=== PATIENT | male | born 1945 | race Caucasian/White ===

== ENCOUNTER 2016-05-27 20:13 | Observation (INO) | payer MEDICARE, OTHER ==
[~2016-05-27] VITALS: Ht 182.9 cm; Wt 90.0 kg
[2016-05-27] MEDS ORDERED: OMEG1CAP6 PO (21:10)
[2016-05-27] MEDS ORDERED: GEMF600T3 PO (21:10)
[2016-05-27] MEDS ORDERED: WARF10TA6 PO (21:10)
[2016-05-27] MEDS ORDERED: CALCIUM PO (21:10)
[2016-05-27] MEDS ORDERED: CANA1TAB4 PO (21:10)
[2016-05-27] MEDS ORDERED: OLME20TA PO (21:10)
[2016-05-27] MEDS ORDERED: METO25TA4 PO (21:10)
[2016-05-27] MEDS ORDERED: ATOR40TA78 PO (21:10)
[2016-05-27] MEDS ORDERED: CHOL20002 PO (21:15)
[2016-05-27] MEDS ORDERED: BACITRACIN ZINC OINT 500U/GM, 0.9 GM TP PRN (21:15)
[2016-05-27] MEDS ORDERED: ANTI1CAP PO (21:15)
[2016-05-27] MEDS ORDERED: SITA100T PO (21:15)
[2016-05-27] MEDS ORDERED: LIDOCAINE 1%-EPI 1:100K, 30ML ONE (21:19)
[2016-05-27] MEDS ORDERED: BACITRACIN ZINC OINT 500U/GM, 0.9 GM ONE (21:24)
[2016-05-27] MEDS ORDERED: LIDOCAINE 1%-EPI 1:100K, 20ML INFIL ONE (22:00)
[2016-05-27] MEDS ORDERED: SODIUM CHLORIDE FLUSH 10ML SYR IVF ONE (23:00)
[2016-05-27 23:08] LABS: HEMOGLOBIN 19.5 g/dL (13.7-18.0)
[2016-05-27 23:19] LABS: ASPARTATE AMINO TRANSFERASE 18 U/L (15-37); BLOOD UREA NITROGEN 23 mg/dL (7-18)
[2016-05-27 23:45] VITALS: BP 146/89
[2016-05-28] MEDS ORDERED: PLEASE ENTER ALLERGIES MC SCH ×2 (00:30)
[2016-05-28] MEDS ORDERED: DIAZEPAM 5 MG TABLET PO PRN (01:00)
[2016-05-28 03:30] VITALS: BP 156/86
[2016-05-28] MEDS ORDERED: METOPROLOL TARTRATE 25 MG TABLET PO SCH (06:00)
[2016-05-28 06:01] LABS: HEMOGLOBIN 18.3 g/dL (13.7-18.0)
[2016-05-28 06:05] LABS: ASPARTATE AMINO TRANSFERASE 15 U/L (15-37); BLOOD UREA NITROGEN 23 mg/dL (7-18)
[2016-05-28 08:01] VITALS: BP 133/81
[2016-05-28] MEDS ORDERED: SITAGLIPTIN 100MG TABLET PO SCH (09:00)
[2016-05-28] MEDS ORDERED: ATORVASTATIN 80 MG TABLET PO SCH (09:00)
[2016-05-28] MEDS ORDERED: INVOKAMET HOMEMEDPO SCH (09:00)
[2016-05-28] MEDS ORDERED: LOSARTAN 50MG TABLET PO SCH (09:00)
[2016-05-28] MEDS ORDERED: CHOLECALCIFEROL 1,000 UNIT TABLET PO SCH (09:00)
[2016-05-28] MEDS ORDERED: GEMFIBROZIL 600 MG TABLET PO SCH (09:00)
[2016-05-28] MEDS ORDERED: CALCIUM CARBONATE 500 MG TABLET PO SCH (09:00)
[2016-05-28] MEDS ORDERED: SODIUM CHLORIDE FLUSH 3ML SYRINGE IVF SCH (09:00)
[2016-05-28] MEDS ORDERED: CEPHALEXIN 500 MG CAPSULE PO SCH (09:00)
== END 2016-05-28 10:27 | disposition home or self-care (01) ==
LOC: ED 22:32 → 4NOR 22:33 → ED 22:49
PROVIDERS: ADMIT Otolaryngology; ATTEND Otolaryngology
DX: R04.0 Epistaxis (principal); E78.5 Hyperlipidemia, unspecified; E11.9 Type 2 diabetes mellitus without complications; I10 Essential (primary) hypertension; J34.2 Deviated nasal septum; Z95.2 Presence of prosthetic heart valve; Z79.01 Long term (current) use of anticoagulants
CPT/HCPCS: 36415; 80053; 85025; 85610; 85730; G0378; J3490

== ENCOUNTER → 2016-08-17 | Outpatient (CLI) | payer MEDICARE, OTHER ==
[~2016-08-17] MED LIST: ANTI1CAP PO; ATOR40TA78 PO; CALCIUM PO; CANA1TAB4 PO; CHOL20002 PO; GEMF600T3 PO; METO25TA4 PO; OLME20TA PO; OMEG1CAP6 PO; SITA100T PO; WARF10TA6 PO
== END | disposition home or self-care (01) ==
LOC: CFH 15:13
PROVIDERS: ATTEND Internal Medicine Critical Care Medicine
DX: J98.11 Atelectasis (principal); M47.894 Other spondylosis, thoracic region; Z95.2 Presence of prosthetic heart valve
CPT/HCPCS: 71020

== ENCOUNTER 2018-04-11 01:28 | Emergency (ER) | payer MEDICARE, OTHER ==
[~2018-04-11] VITALS: Ht 185.4 cm; Wt 95.0 kg
[~2018-04-11 01:28] MED LIST changes: -CHOL20002 PO; +CHOL200052 PO; -GEMF600T3 PO; +GEMF600T8 PO; -OLME20TA PO; +OLME20TA17 PO; +WARF10TA43 PO; -WARF10TA6 PO
[2018-04-11] MEDS ORDERED: PHENYLEPHRINE NASAL 1%, 15ML SPRAY NAS STA (01:30)
[2018-04-11] MEDS ORDERED: PHENYLEPHRINE NASAL 1%, 15ML SPRAY ONE (01:39)
--- NOTE | 2018-04-11 01:42 | NUR ---
NOSE BLEED SINCE 10 PM GOT WORSE AT MIDNIGHT, ON COUMADIN
[2018-04-11 02:00] LABS: BASOPHILS # (AUTO) 0.03 x10^3/uL (0-0.1); BASOPHILS % (AUTO) 0 % (0-1); EOSINOPHILS # (AUTO) 0.22 x10^3/uL (0-0.4); EOSINOPHILS % (AUTO) 4 % (1-7); LYMPHOCYTES # (AUTO) 1.19 x10^3/uL (1-3.4); LYMPHOCYTES % (AUTO) 21 % (22-44); MD NO; MEAN CORPUSCULAR HEMOGLOBIN 33.4 pg (27.5-34.5); MEAN CORPUSCULAR HGB CONC 33.3 g/dL (33.2-36.2); MEAN CORPUSCULAR VOLUME 100.1 fL (81-97); MEAN PLATELET VOLUME 9.8 fL (7.4-10.4); MONOCYTES # (AUTO) 0.52 x10^3/uL (0.2-0.8); MONOCYTES % (AUTO) 9 % (2-9); NEUTROPHILS # (AUTO) 3.85 x10^3/uL (1.8-6.8); NEUTROPHILS % (AUTO) 66 % (42-75); PLATELET COUNT 196 x10^3/uL (130-400); RED BLOOD COUNT 5.55 x10^6/uL (4.38-5.82); RED CELL DISTRIBUTION WIDTH 15.9 % (9.4-14.8)
[2018-04-11 02:25] LABS: INTERNATIONAL NORMALIZED RATIO 6.42 (0.93-1.1); PROTHROMBIN TIME 63.4 Seconds (9.6-11.5)
[2018-04-11] MEDS ORDERED: PHYTONADIONE 10 MG/ML, 1ML IM ONE (02:30)
[2018-04-11] MEDS ORDERED: PHYTONADIONE 10 MG/ML, 1ML ONE (02:41)
[2018-04-11 02:43] LABS: ALANINE AMINOTRANSFERASE 25 U/L (12-78); ALBUMIN 4.1 g/dL (3.4-5.0); ANION GAP 9 mmol/L (5-15); CALCIUM 9.2 mg/dL (8.5-10.1); CHLORIDE 104 mmol/L (98-107); CREATININE 1.32 mg/dL (0.7-1.3)
[2018-04-11 02:45] LABS: ALKALINE PHOSPHATASE 103 U/L (45-117); BILIRUBIN,TOTAL 0.4 mg/dL (0.2-1.0); TOTAL PROTEIN 7.6 g/dL (6.4-8.2)
--- NOTE | 2018-04-11 02:58 | NUR ---
WALKED PT TO END OF DIAMOND AND BACK, NO NEW BLEEDING
[2018-04-11 04:11] VITALS: BP 134/72
== END 2018-04-11 04:14 | disposition home or self-care (01) ==
LOC: ED 01:55
DX: R04.0 Epistaxis (principal); D68.59 Other primary thrombophilia
CPT/HCPCS: 36415; 80053; 85025; 85610; 85730; 96372; 99283; J3430

== ENCOUNTER → 2019-04-03 | Outpatient (CLI) | payer MEDICARE, OTHER | END | disposition home or self-care (01) | LOC: CFH 12:25 | PROVIDERS: ATTEND Internal Medicine Cardiovascular Disease | DX: I35.9 Nonrheumatic aortic valve disorder, unspecified (principal); I11.9 Hypertensive heart disease without heart failure; E78.5 Hyperlipidemia, unspecified; E11.9 Type 2 diabetes mellitus without complications; Z79.01 Long term (current) use of anticoagulants; Z95.4 Presence of other heart-valve replacement; Z87.891 Personal history of nicotine dependence | CPT/HCPCS: 93306 ==

== ENCOUNTER 2020-02-15 19:18 | Emergency (ER) | payer MEDICARE ==
[~2020-02-15] VITALS: Ht 172.7 cm; Wt 95.0 kg
--- NOTE | 2020-02-15 21:24 | NUR ---
PT AMBULATORY TO ROOM. NADN NASAL CLAMP AND PACKING REMAIN IN PLACE
[2020-02-15] MEDS ORDERED: OXYMETAZOLINE NASAL SPRAY 0.05%,30ML ONE (21:56)
[2020-02-15] MEDS ORDERED: OXYMETAZOLINE NASAL SPRAY 0.05%, 15ML NAS ONE (22:00)
[2020-02-15 22:37] LABS: INTERNATIONAL NORMALIZED RATIO 2.84 (0.93-1.1)
[2020-02-15 22:56] LABS: PROTHROMBIN TIME 29.8 Seconds (9.6-11.5)
--- NOTE | 2020-02-15 23:24 | NUR ---
Patient ambulatory upon discharge from department, returned appropriate information post discharge, medication and follow up teaching.
[2020-02-15 23:25] VITALS: BP 151/83
== END 2020-02-15 23:27 | disposition home or self-care (01) ==
LOC: ED 23:23
DX: R04.0 Epistaxis (principal); F17.210 Nicotine dependence, cigarettes, uncomplicated
CPT/HCPCS: 36415; 85610; 99283; 99406

== ENCOUNTER 2020-02-28 23:28 | Observation (INO) | payer MEDICARE ==
[~2020-02-28] VITALS: Ht 182.9 cm; Wt 92.7 kg
[2020-02-28] MEDS ORDERED: NEOSPORIN OINT. PKT 1 PACKET ONE (23:34)
[2020-02-28] MEDS ORDERED: TRANEXAMIC ACID 100 MG/ML, 10ML ONE (23:39)
[2020-02-29] MEDS ORDERED: TRANEXAMIC ACID 100 MG/ML, 10ML TP ONE
--- NOTE | 2020-02-29 00:07 | NUR ---
LAST INR 2.4
--- NOTE | 2020-02-29 01:14 | NUR ---
PT RESTING AWAITING ADMITT ORDERS NO NEW COMPLAINTS ....
[2020-02-29] MEDS ORDERED: SODIUM CHLORIDE FLUSH 10ML SYR IVF PRN (02:00)
[2020-02-29 02:31] VITALS: BP 161/92
[2020-02-29] MEDS ORDERED: WARF-36 PO (03:10)
[2020-02-29] MEDS ORDERED: EMPA1TAB7 PO (03:12)
[2020-02-29] MEDS: AMOXICILLIN/CLAV 875-125MG TABLET PO SCH ×2 (03:24→15:37)
[2020-02-29] MEDS ORDERED: ONDANSETRON 2MG/ML, 2ML IVPush PRN (03:30)
[2020-02-29] MEDS ORDERED: ENALAPRILAT 1.25 MG/ML, 2ML IVPush PRN (03:30)
[2020-02-29] MEDS ORDERED: LABETALOL 5MG/ML, 20ML IVPush PRN (03:30)
[2020-02-29] MEDS ORDERED: ACETAMINOPHEN 325 MG TABLET PO PRN (03:30)
[2020-02-29] MEDS ORDERED: METOPROLOL TARTRATE 50 MG TAB PO SCH (04:00)
[2020-02-29 05:41] LABS: BASOPHILS % (AUTO) 1 % (0-1); EOSINOPHILS % (AUTO) 2 % (1-7); LYMPHOCYTES % (AUTO) 10 % (22-44); MEAN CORPUSCULAR HEMOGLOBIN 33.6 pg (27.5-34.5); MEAN CORPUSCULAR HGB CONC 33.9 g/dL (33.2-36.2); MEAN PLATELET VOLUME 9.7 fL (7.4-10.4); MONOCYTES % (AUTO) 9 % (2-9); NEUTROPHILS % (AUTO) 78 % (42-75); PLATELET COUNT 190 x10^3/uL (130-400); RED BLOOD COUNT 5.06 x10^6/uL (4.38-5.82); RED CELL DISTRIBUTION WIDTH 15.6 % (9.4-14.8)
[2020-02-29 05:44] LABS: MD NO
[2020-02-29 05:48] LABS: ANION GAP 3 mmol/L (5-15); CALCIUM 8.9 mg/dL (8.5-10.1); CHLORIDE 108 mmol/L (98-107); CREATININE 0.91 mg/dL (0.7-1.3)
[2020-02-29 06:02] LABS: INTERNATIONAL NORMALIZED RATIO 2.73 (0.93-1.1); PROTHROMBIN TIME 28.7 Seconds (9.6-11.5)
[2020-02-29 06:53] VITALS: BP 154/82
[2020-02-29] MEDS ORDERED: LOSARTAN 100 MG TAB PO SCH (09:00)
[2020-02-29] MEDS: OXYMETAZOLINE NASAL SPRAY 0.05%, 15ML NAS SCH ×2 (09:45→13:57)
[2020-02-29 12:26] VITALS: BP 136/84
[2020-02-29] MEDS ORDERED: AMOX1TAB12 PO (15:18)
[2020-02-29] MEDS ORDERED: OXYM15SP8 NAS (15:18)
[2020-02-29] MEDS ORDERED: WARFARIN 5 MG TABLET PO-COUM ONE (18:00)
[2020-02-29] MEDS ORDERED: ATORVASTATIN 80 MG TABLET PO SCH (21:00)
== END 2020-02-29 16:00 | disposition home or self-care (01) ==
LOC: ED 02-29 00:13 → EDIP 02-29 01:48 → INTOOBSV 02-29 01:48 → 3N 02-29 02:25
PROVIDERS: ADMIT Family Medicine; ATTEND Family Medicine
DX: R04.0 Epistaxis (principal); D68.69 Other thrombophilia; I10 Essential (primary) hypertension; E11.9 Type 2 diabetes mellitus without complications; E78.5 Hyperlipidemia, unspecified; E66.9 Obesity, unspecified; T45.515A Adverse effect of anticoagulants, initial encounter; Z79.899 Other long term (current) drug therapy; Z95.2 Presence of prosthetic heart valve; Z87.891 Personal history of nicotine dependence; Z68.35 Body mass index [BMI] 35.0-35.9, adult; Z66 Do not resuscitate; Z79.01 Long term (current) use of anticoagulants; Z79.84 Long term (current) use of oral hypoglycemic drugs
CPT/HCPCS: 36415; 80048; 83036; 85025; 85610; 86850; 86870; 86900; 86902; 86922; 99284; G0378; 86923

== ENCOUNTER 2020-03-01 09:37 | Emergency (ER) | payer MEDICARE ==
[~2020-03-01] VITALS: Ht 182.9 cm; Wt 97.0 kg
[~2020-03-01 09:37] MED LIST changes: +AMOX1TAB12 PO; +EMPA1TAB7 PO; +OXYM15SP8 NAS; +WARF-36 PO
[2020-03-01 09:47] VITALS: BP 158/93
--- NOTE | 2020-03-01 09:52 | NUR ---
BIB [facility], PT WITH NOSEBLEED STARTING 0600 THIS AM, HX OF SAME YESTERDAY HAD PACKING DONE, ON COUMADIN. ALSO WITH CAUTERIZATION DONE 02/14.
[2020-03-01] MEDS ORDERED: BACITRACIN ZINC OINT 500U/GM, 0.9 GM TP ONE (10:05)
[2020-03-01] MEDS ORDERED: OXYMETAZOLINE NASAL SPRAY 0.05%,30ML ONE (10:09)
[2020-03-01] MEDS ORDERED: NEOSPORIN OINT. PKT 1 PACKET ONE (10:09)
[2020-03-01] MEDS ORDERED: LIDOCAINE-MPF 2% ,5ML ONE (10:09)
[2020-03-01] MEDS ORDERED: TRANEXAMIC ACID 100 MG/ML, 10ML ONE (10:09)
[2020-03-01] MEDS ORDERED: OXYMETAZOLINE NASAL SPRAY 0.05%, 15ML NAS ONE (10:30)
[2020-03-01] MEDS ORDERED: LIDOCAINE 2%, 10ML INFIL ONE (10:30)
[2020-03-01] MEDS ORDERED: TRANEXAMIC ACID 100 MG/ML, 10ML TP ONE (10:30)
--- NOTE | 2020-03-01 11:13 | NUR ---
PT WITH NASAL PACKING IN PLACE. NO BLEEDING NOTED. NO IV TO DC. REVIEWED DC INSTRUCTIONS WITH PT, UNDERSTANDING VERBALIZED. PT LEFT AMB GAIT STEADY.
== END 2020-03-01 11:16 | disposition home or self-care (01) ==
LOC: ED 09:55
DX: R04.0 Epistaxis (principal)
CPT/HCPCS: 99283

== ENCOUNTER 2020-03-08 22:07 | Emergency (ER) | payer MEDICARE ==
[~2020-03-08] VITALS: Ht 182.9 cm; Wt 93.4 kg
[2020-03-08 22:12] VITALS: BP 146/79
--- NOTE | 2020-03-08 22:20 | NUR ---
PATIENT WALKED BACK FROM TRIAGE WITH CHIEF C/O NOSE BLEED. PATIENT STATES HE'S BEEN SEEN FOR THE SAME ISSUE 4 TIMES IN THE LAST MONTH FOR THE SAME ISSUE. PATIENT HAD CAUTERIZATION DONE 02/28/2020, AND WAS BROUGHT BACK THE SAME NIGHT FOR NOSE BLEED. PACKING WAS PLACED ON THE AND PATIENT WAS TOLD TO FOLLOW UP IN ER IF HE STARTED BLEEDING THROUGH THE PACKING. PATIENT REPORTS TAKING BLOOD THINNERS. NOSE IS NOT ACTIVELY BLEEDING AT THIS TIME, NADN, AT BEDSIDE.
--- NOTE | 2020-03-08 23:22 | NUR ---
ERMD ON PHONE WITH ENT TO DISCUSS POC.
--- NOTE | 2020-03-08 23:45 | NUR ---
BEDSIDE REPORT FROM [facility], ASSUMING CARE OF PT AT THIS TIME
== END 2020-03-09 00:07 | disposition home or self-care (01) ==
LOC: ED 22:39
DX: R04.0 Epistaxis (principal); Z79.01 Long term (current) use of anticoagulants; Z95.2 Presence of prosthetic heart valve
CPT/HCPCS: 99281

== ENCOUNTER → 2020-07-01 | Outpatient (CLI) | payer MEDICARE ==
[~2020-07-01] MED LIST changes: +FURO20TA3 PO; +GEMF-31 PO; -GEMF600T8 PO
== END | disposition home or self-care (01) ==
LOC: CFH 10:15
PROVIDERS: ATTEND Internal Medicine Cardiovascular Disease
DX: R91.8 Other nonspecific abnormal finding of lung field (principal); I48.91 Unspecified atrial fibrillation; E78.2 Mixed hyperlipidemia; G47.33 Obstructive sleep apnea (adult) (pediatric); I10 Essential (primary) hypertension; I35.9 Nonrheumatic aortic valve disorder, unspecified
CPT/HCPCS: 71046

== ENCOUNTER → 2020-07-18 | Outpatient (CLI) | payer MEDICARE | END | disposition home or self-care (01) | LOC: CFH 16:03 | PROVIDERS: ATTEND Student in an Organized Health Care Education/Training Program | DX: I34.0 Nonrheumatic mitral (valve) insufficiency (principal) | CPT/HCPCS: 93306 ==

== ENCOUNTER 2020-08-12 05:54 | Day surgery (SDC) | payer MEDICARE ==
[~2020-08-12] VITALS: Ht 182.9 cm; Wt 88.6 kg
[2020-08-12] MEDS ORDERED: SODIUM CHLORIDE 0.9% 1,000 ML IV SCH (06:30)
[2020-08-12] MEDS ORDERED: WARF7.5T46 PO (06:31)
[2020-08-12] MEDS ORDERED: ANTI1CAP PO (06:34)
[2020-08-12] MEDS ORDERED: FURO20TA3 PO (06:35)
[2020-08-12 06:37] VITALS: BP 127/66
[2020-08-12] MEDS ORDERED: PROPOFOL 10 MG/ML, 20ML ONE (07:21)
[2020-08-12 07:23] LABS: BASOPHILS % (AUTO) 1 % (0-1); EOSINOPHILS % (AUTO) 3 % (1-7); LYMPHOCYTES % (AUTO) 11 % (22-44); MEAN CORPUSCULAR HEMOGLOBIN 31.3 pg (27.5-34.5); MEAN CORPUSCULAR HGB CONC 33.4 g/dL (33.2-36.2); MEAN PLATELET VOLUME 9.7 fL (7.4-10.4); MONOCYTES % (AUTO) 9 % (2-9); NEUTROPHILS % (AUTO) 77 % (42-75); PLATELET COUNT 171 x10^3/uL (130-400); RED BLOOD COUNT 4.61 x10^6/uL (4.38-5.82); RED CELL DISTRIBUTION WIDTH 17.7 % (9.4-14.8)
[2020-08-12 07:30] LABS: ANION GAP 6 mmol/L (5-15); CALCIUM 9.4 mg/dL (8.5-10.1); CHLORIDE 107 mmol/L (98-107)
[2020-08-12 07:31] LABS: CREATININE 1.02 mg/dL (0.7-1.3)
[2020-08-12 07:32] LABS: INTERNATIONAL NORMALIZED RATIO 1.88 (0.93-1.1); PROTHROMBIN TIME 19.9 Seconds (9.6-11.5)
== END 2020-08-12 09:02 | disposition home or self-care (01) ==
LOC: CACL 05:54
PROVIDERS: ATTEND Internal Medicine Cardiovascular Disease
DX: I48.91 Unspecified atrial fibrillation (principal); I08.0 Rheumatic disorders of both mitral and aortic valves; E11.22 Type 2 diabetes mellitus with diabetic chronic kidney disease; I12.9 Hypertensive chronic kidney disease with stage 1 through stage 4 chronic kidney disease, or unspecified chronic kidney disease; N18.9 Chronic kidney disease, unspecified; E78.2 Mixed hyperlipidemia; G47.33 Obstructive sleep apnea (adult) (pediatric); F17.290 Nicotine dependence, other tobacco product, uncomplicated; Z20.822 Contact with and (suspected) exposure to COVID-19; Z79.01 Long term (current) use of anticoagulants; Z79.84 Long term (current) use of oral hypoglycemic drugs; Z79.899 Other long term (current) drug therapy; Z95.2 Presence of prosthetic heart valve; Z99.81 Dependence on supplemental oxygen
CPT/HCPCS: 36415; 80048; 85025; 85610; 87635; 92960; 93005; 93312; 93321; 93325; J2704

== ENCOUNTER → 2020-10-02 | Outpatient (CLI) | payer MEDICARE ==
[~2020-10-02] MED LIST changes: +WARF7.5T46 PO
== END | disposition home or self-care (01) ==
LOC: CFH 11:24
PROVIDERS: ATTEND Registered Nurse
DX: J90 Pleural effusion, not elsewhere classified (principal); J96.11 Chronic respiratory failure with hypoxia
CPT/HCPCS: 71046

== ENCOUNTER → 2020-10-23 | Outpatient (CLI) | payer MEDICARE | END | disposition home or self-care (01) | LOC: CVU 15:07 | PROVIDERS: ATTEND Registered Nurse | DX: I65.23 Occlusion and stenosis of bilateral carotid arteries (principal); I10 Essential (primary) hypertension; E11.9 Type 2 diabetes mellitus without complications | CPT/HCPCS: 93880 ==